=== PATIENT | male | born 1980 | race Caucasian/White ===

== ENCOUNTER 2018-01-22 20:17 | Emergency (ER) | payer MEDICAID ==
[~2018-01-22] VITALS: Ht 185.4 cm; Wt 70.5 kg
[2018-01-22 20:34] VITALS: Ht 185.4 cm; Wt 70.5 kg
[2018-01-22] MEDS ORDERED: CLEOCIN HCL300 MG PO (20:36)
[2018-01-22] MEDS ORDERED: TORADOL10 MG PO (23:30)
[2018-01-22] MEDS ORDERED: BACTROBAN NASAL1 GM NASAL (23:30)
[2018-01-23 04:59] VITALS: BP 110/75
== END 2018-01-22 23:40 | disposition home or self-care (01) ==
LOC: D.ER 20:17
DX: L02.415 Cutaneous abscess of right lower limb (principal); F17.200 Nicotine dependence, unspecified, uncomplicated